=== PATIENT | male | born 1995 | race Caucasian/White ===

== ENCOUNTER 2021-03-17 03:28 | Emergency (ER) | payer OTHER ==
[2021-03-17 04:03] LABS: HEMOGLOBIN 17.1 gm/dl (14.0-17.5); RED BLOOD COUNT 5.86 M/UL (4.20-5.50); WHITE BLOOD COUNT 9.6 K/UL (4.5-11.0)
[2021-03-17 04:26] LABS: BUN/CREATININE RATIO 14 (0-10)
== END 2021-03-17 05:00 | disposition home or self-care (01) ==
LOC: ER1 03:28
PROVIDERS: Emergency Medicine
DX: R07.2 Precordial pain (principal)
CPT/HCPCS: 71045; 80053; 82550; 82553; 83874; 84484; 85025; 93005; 99285